=== PATIENT | female | born 1960 | race Caucasian/White ===

== ENCOUNTER → 2016-12-24 | Outpatient (CLI) | payer OTHER ==
--- NOTE | 2016-12-25 13:19 | MM ---
Reason for exam: screening (asymptomatic). Last mammogram was performed 2 years and 3 months ago. History: Patient is postmenopausal. Physical Findings: A clinical breast exam by your physician is recommended on an annual basis and results should be correlated with mammographic findings. MG Screening Mammo w CAD Bilateral CC and MLO view(s) were taken. Prior study comparison: October 05, 2014, bilateral MG screening mammo w CAD. The breast tissue is heterogeneously dense. This may lower the sensitivity of mammography. Finding: There are typically benign round calcifications in both breasts. New nodularity anterior inner left quadrant of the right breast 1-2cm from nipple. ASSESSMENT: Incomplete: need additional imaging evaluation, BI-RAD 0 RECOMMENDATION: Special view mammogram and ultrasound of the right breast. [facility] will attempt to contact patient to return for supplemental views and ultrasound.
== END | disposition home or self-care (01) ==
LOC: RADMAMWWP 10:53
PROVIDERS: ATTEND Family Medicine
DX: Z12.31 Encounter for screening mammogram for malignant neoplasm of breast (principal); Z80.3 Family history of malignant neoplasm of breast

== ENCOUNTER → 2017-01-08 | Outpatient (CLI) | payer OTHER ==
--- NOTE | 2017-01-09 10:54 | MM ---
Reason for exam: additional evaluation requested from abnormal screening. Last mammogram was performed less than 1 month ago. History: Patient is postmenopausal. Family history of breast cancer in maternal grandmother at age 60. Physical Findings: Nurse did not find any significant physical abnormalities on exam. MG Work Up Mamm w CAD RT CC and MLO view(s) were taken of the right breast. Prior study comparison: December 24, 2016, bilateral MG screening mammo w CAD. October 05, 2014, bilateral MG screening mammo w CAD. There is no discrete abnormality including area of concern. These results were verbally communicated with the patient and result sheet given to the patient on 01/08/17. ASSESSMENT: Incomplete: need additional imaging evaluation, BI-RAD 0 RECOMMENDATION: Ultrasound of the right breast.
--- NOTE | 2017-01-09 10:56 | USB ---
Reason for exam: additional evaluation requested from abnormal screening. History: Patient is postmenopausal. Family history of breast cancer in maternal grandmother at age 60. US Breast Workup Limited RT Right breast ultrasound demonstrates a 5 x 3 x 6mm hypoechoic duct cluster at 5 o'clock and a debris filled duct at the posterior nipple. These results were verbally communicated with the patient and result sheet given to the patient on 01/08/17. ASSESSMENT: Probably benign, BI-RAD 3 RECOMMENDATION: Follow-up diagnostic mammogram and ultrasound of the right breast in 6 months.
== END | disposition home or self-care (01) ==
LOC: RADMAMWWP 14:16
PROVIDERS: ATTEND Family Medicine
DX: R92.8 Other abnormal and inconclusive findings on diagnostic imaging of breast (principal)
CPT/HCPCS: 76642; G0206

== ENCOUNTER → 2017-06-30 | Outpatient (CLI) | payer OTHER ==
--- NOTE | 2017-06-30 14:47 | MM ---
Reason for exam: follow-up at short interval from prior study. Last mammogram was performed 6 months ago. History: Patient is postmenopausal. Family history of breast cancer in maternal grandmother at age 60. Physical Findings: Nurse did not find any significant physical abnormalities on exam. MG 3D Diag Mammo W/Cad RT CC and MLO view(s) were taken of the right breast. Prior study comparison: January 08, 2017, right breast MG work up mamm w CAD RT. December 24, 2016, bilateral MG screening mammo w CAD. The breast tissue is heterogeneously dense. This may lower the sensitivity of mammography. There is chronic nodularity in the right breast. There is no discrete abnormality. These results were verbally communicated with the patient and result sheet given to the patient on 06/30/17. ASSESSMENT: Benign, BI-RAD 2 RECOMMENDATION: Return to routine screening mammogram schedule for both breasts. Back on schedule for December 2017.
--- NOTE | 2017-06-30 14:49 | USB ---
Reason for exam: follow-up at short interval from prior study. History: Patient is postmenopausal. Family history of breast cancer in maternal grandmother at age 60. US Breast RT Right breast ultrasound includes all four quadrants, the retroareolar region and axilla. Finding demonstrates a 0.4 x 0.3 x 0.2cm oval lesion too small to characterize at 4 o'clock, a 1.0 x 1.1 x 0.4cm oval, cluster of small cysts at 6 o'clock and debris filled duct at the posterior nipple. Stable from 9-13-17. These results were verbally communicated with the patient and result sheet given to the patient on 06/30/17. ASSESSMENT: Benign, BI-RAD 2 RECOMMENDATION: Return to routine screening mammogram schedule for both breasts. Back on schedule for December 2017.
== END | disposition home or self-care (01) ==
LOC: RADMAMWWP 13:22
PROVIDERS: ATTEND Family Medicine
DX: R92.8 Other abnormal and inconclusive findings on diagnostic imaging of breast (principal)
CPT/HCPCS: 77065; 76641; G0279

== ENCOUNTER 2018-02-20 09:45 | Day surgery (SDC) | payer OTHER ==
[2018-02-18 10:03] VITALS: BMI 37.8
[~2018-02-20 09:45] MED LIST: LACTATED RINGERS 1,000 ML IV SCH; LIDOCAINE 1% 20 ML VIAL (10MG/ML) FOR IV START INTRADERMA PRN
[2018-02-20 10:05] VITALS: TEMP 98.6
[2018-02-20] MEDS ORDERED: LIDOCAINE 1% INJ 10MG/ML (20 ML MDV) ONE (10:37)
[2018-02-20] MEDS ORDERED: GLYCOPYRROLATE 0.2 MG/ML 2 ML VIAL ONE (10:37)
[2018-02-20] MEDS ORDERED: PROPOFOL 10 MG/ML 20 ML VIAL IV ONE (10:37)
--- NOTE | 2018-02-20 10:48 | P.GSHP ---
History of Present Illness H&P Date: 02/20/18 Chief Complaint: Screening 57-year-old female presents today for colonoscopy. Last colonoscopy 5-6 years ago. She has a history of colon polyps. No family history of colon cancer. Past Medical History Past Medical History: Hyperlipidemia, Hypertension History of Any Multi-Drug Resistant Organisms: None Reported Past Surgical History: Section, Uterine Ablation Additional Past Surgical History / Comment(s): COLONOSCOPY Past Anesthesia/Blood Transfusion Reactions: No Reported Reaction Smoking Status: Never smoker - Past Family History Father Family Medical History: Cancer Medications and Allergies Home Medications Medication Instructions Recorded Confirmed Type FLUoxetine HCL 20 mg PO DAILY 02/18/18 02/20/18 History Hydrochlorothiazide 25 mg PO DAILY 02/18/18 02/20/18 History Metoprolol Succinate (ER) [Toprol 100 mg PO DAILY 02/18/18 02/20/18 History Xl] Simvastatin [Zocor] 20 mg PO HS 02/18/18 02/20/18 History Allergies Allergy/AdvReac Type Severity Reaction Status Date / Time Penicillins Allergy Rash/Hives Verified 02/20/18 09:59 Surgical - Exam Vital Signs Temp Pulse Resp BP Pulse Ox 98.6 F 55 L 16 162/70 96 02/20/18 10:03 02/20/18 10:03 02/20/18 10:03 02/20/18 10:03 02/20/18 10:03 Physical exam: General: Well-developed, well-nourished HEENT: Normocephalic, sclerae nonicteric Abdomen: Nontender, nondistended Extremities: No edema Neuro: Alert and oriented Assessment and Plan (1) Colon cancer screening Narrative/Plan: Will proceed with colonoscopy at this time Current Visit: Yes Status: Acute Code(s): Z12.11 - ENCOUNTER FOR SCREENING FOR MALIGNANT NEOPLASM OF COLON SNOMED Code(s): 792732653
--- NOTE | 2018-02-20 11:01 | P.PCN ---
Date of Procedure: 02/20/18 Procedure(s) Performed: PREOPERATIVE DIAGNOSIS: Colon cancer screening with history of polyps POSTOPERATIVE DIAGNOSIS: Diverticulosis PROCEDURE: Colonoscopy ANESTHESIA: MAC SURGEON: Jamar Conn M.D. SPECIMENS: None ENDOSCOPIC PROCEDURE: The patient was placed on the endoscopy table in the left decubitus position. The Olympus colonoscope was inserted into the anus and passed under direct visualization to the base of the cecum. The appendiceal orifice was visualized. From that point the scope was slowly withdrawn inspecting all surfaces carefully. There were no neoplastic inflammatory or polypoid lesions throughout the cecum, ascending, transverse, descending, sigmoid and rectum. There was mild left-sided diverticulosis noted. Digital rectal examination was normal. The patient was taken to the recovery room in stable condition per anesthesia guidelines. RECOMMENDATIONS: Increase fiber. Follow-up colonoscopy 5 years.
[2018-02-20 11:21] VITALS: BP 109/69; PULSE 49; RESP 16
== END 2018-02-20 11:36 | disposition home or self-care (01) ==
LOC: ORWHC2ENDO 09:45
PROVIDERS: ATTEND Surgery
DX: Z12.11 Encounter for screening for malignant neoplasm of colon (principal); K57.30 Diverticulosis of large intestine without perforation or abscess without bleeding; Z86.010 Personal history of colon polyps; E78.5 Hyperlipidemia, unspecified; I10 Essential (primary) hypertension; F39 Unspecified mood [affective] disorder; Z79.899 Other long term (current) drug therapy; Z88.0 Allergy status to penicillin
CPT/HCPCS: J2001; J2704; G0105

== ENCOUNTER → 2018-02-25 | Outpatient (CLI) | payer OTHER ==
--- NOTE | 2018-02-26 12:06 | MM ---
Reason for exam: screening (asymptomatic). Last mammogram was performed 8 months ago. History: Patient is postmenopausal. Family history of breast cancer in maternal grandmother at age 60. MG 3D Screening Mammo W/Cad Bilateral CC and MLO view(s) were taken. Prior study comparison: June 30, 2017, right breast MG 3d diag mammo w/cad RT. January 08, 2017, right breast MG work up mamm w CAD RT. There are scattered fibroglandular densities. No significant changes when compared with prior studies. ASSESSMENT: Benign, BI-RAD 2 RECOMMENDATION: Routine screening mammogram of both breasts in 1 year.
== END | disposition home or self-care (01) ==
LOC: RADMAMWWP 11:05
PROVIDERS: ATTEND Family Medicine
DX: Z12.31 Encounter for screening mammogram for malignant neoplasm of breast (principal)
CPT/HCPCS: 77063; 77067

== ENCOUNTER → 2019-04-06 | Outpatient (CLI) | payer OTHER ==
--- NOTE | 2019-04-08 09:58 | MM ---
Reason for exam: screening (asymptomatic). Last mammogram was performed 1 year and 1 month ago. History: Patient is postmenopausal. Family history of breast cancer in maternal grandmother at age 60. Physical Findings: A clinical breast exam by your physician is recommended on an annual basis and results should be correlated with mammographic findings. MG 3D Screening Mammo W/Cad Bilateral CC and MLO view(s) were taken. Prior study comparison: February 25, 2018, bilateral MG 3d screening mammo w/cad. June 30, 2017, right breast MG 3d diag mammo w/cad RT. The breast tissue is heterogeneously dense. This may lower the sensitivity of mammography. Benign appearing bilateral calcifications. No suspicious abnormality. No significant changes when compared with prior studies. ASSESSMENT: Benign, BI-RAD 2 RECOMMENDATION: Routine screening mammogram of both breasts in 1 year.
== END | disposition home or self-care (01) ==
LOC: RADMAMWWP 02-23 15:31
PROVIDERS: ATTEND Family Medicine
DX: Z12.31 Encounter for screening mammogram for malignant neoplasm of breast (principal)
CPT/HCPCS: 77063; 77067

== ENCOUNTER → 2020-08-23 | Outpatient (CLI) | payer OTHER ==
--- NOTE | 2020-08-24 13:36 | MM ---
Reason for exam: screening (asymptomatic). Last mammogram was performed 1 year and 5 months ago. History: Patient is postmenopausal. Family history of breast cancer in maternal grandmother at age 60. Physical Findings: A clinical breast exam by your physician is recommended on an annual basis and results should be correlated with mammographic findings. MG 3D Screening Mammo W/Cad Bilateral CC and MLO view(s) were taken. Prior study comparison: April 06, 2019, bilateral MG 3d screening mammo w/cad. February 25, 2018, bilateral MG 3d screening mammo w/cad. The breast tissue is heterogeneously dense. This may lower the sensitivity of mammography. Finding: There are grouped/clustered calcifications in the central aspect of the left breast. There are few benign appearing round calcifications bilaterally. New finding and increase in number of calcifications since April 06, 2019. ASSESSMENT: Incomplete: need additional imaging evaluation, BI-RAD 0 RECOMMENDATION: Special view mammogram of the left breast. [facility] will attempt to contact patient to return for supplemental views.
== END | disposition home or self-care (01) ==
LOC: RADMAMWWP 11:03
PROVIDERS: ATTEND Internal Medicine
DX: Z12.31 Encounter for screening mammogram for malignant neoplasm of breast (principal)
CPT/HCPCS: 77063; 77067

== ENCOUNTER → 2020-08-25 | Outpatient (CLI) | payer OTHER ==
--- NOTE | 2020-08-25 12:13 | MM ---
Reason for exam: additional evaluation requested from abnormal screening. Last mammogram was performed less than 1 month ago. History: Patient is postmenopausal. Family history of breast cancer in maternal grandmother at age 60. Physical Findings: Nurse did not find any significant physical abnormalities on exam. MG 3D Work Up W/Cad LT CC with magnification, ML with magnification, and ML view(s) were taken of the left breast. Prior study comparison: August 23, 2020, bilateral MG 3d screening mammo w/cad. April 06, 2019, bilateral MG 3d screening mammo w/cad. The breast tissue is heterogeneously dense. This may lower the sensitivity of mammography. There is a group of indeterminate microcalcifications central outer left breast zone B. These results were verbally communicated with the patient and result sheet given to the patient on 08/25/20. ASSESSMENT: Suspicious, BI-RAD 4 RECOMMENDATION: Stereotactic core biopsy of the left breast. Called Dr. Brink's office with mammographic findings and has scheduled an appointment for the patient for 09/27/20 at 9:[address] Epps. Biopsy scheduled for 09/18/20 at 10:00. PRELIMINARY REPORT CALLED AND FAXED TO DR. EPPS ON 08/25/20.
== END | disposition home or self-care (01) ==
LOC: RADMAMWWP 09:10
PROVIDERS: ATTEND Internal Medicine
DX: R92.0 Mammographic microcalcification found on diagnostic imaging of breast (principal); Z78.0 Asymptomatic menopausal state; Z80.3 Family history of malignant neoplasm of breast
CPT/HCPCS: 77065; G0279; 77061

== ENCOUNTER → 2020-09-18 | Day surgery (SDC) | payer OTHER ==
[2020-09-18 09:26] VITALS: RESP 16; TEMP 98.4
[2020-09-18 11:34] VITALS: BP 128/77; PULSE 56
--- NOTE | 2020-09-18 16:13 | MM ---
STEREOTACTIC GUIDED VACUUM-ASSISTED BREAST BIOPSY RADIOLOGIST: Misael Pantoja M.D. ANESTHESIA: 1% buffered lidocaine as local anesthetic DEVICE: Mammotome 8 gauge BIOPSY MARKER CLIP: Yes SPECIMEN RADIOGRAPH: Yes COMPLICATIONS: None DISCUSSION: The procedure and risks were explained to the patient and written informed consent obtained. Using local anesthetic, sterile technique and stereotactic guidance, the vacuum assisted core biopsy device was advanced and positioned in the region of microcalcifications LEFT breast. The stereotactic biopsy device was advanced according to the stereotactic coordinates and positioned in the region of the calcifications. Multiple core samples were obtained. Breast specimen radiograph confirmed presence of calcifications. A biopsy marker clip was deployed. Hemostasis was achieved with direct compression over the breast. A compression dressing was applied and the patient's breast was wrapped with an 8 inch Mateo wrap. Post procedure 2 view mammogram was obtained verifying satisfactory position of the biopsy marker clip in the breast. There were no complications. The patient tolerated procedure well. Post procedural instructions were given to the patient and the patient was discharged in satisfactory condition. A follow-up letter will be forthcoming after receiving pathology results. IMPRESSION: Technically successful stereotactic guided vacuum assisted core biopsy left breast with breast specimen radiograph obtained, biopsy marker clip placement and 2 view mammogram performed. Pathology Results: High Risk LEFT BREAST, STEREOTACTIC CORE BIOPSY: Atypical ductal hyperplasia (ADH), intraductal papilloma with atypia and background fibrocystic changes including calcifications. See note. Recommendation Surgical consult of the left breast. KARLA
== END ==
LOC: RADMAMWWP 08:54
PROVIDERS: ATTEND Student in an Organized Health Care Education/Training Program
DX: N62 Hypertrophy of breast (principal); D24.2 Benign neoplasm of left breast; R92.1 Mammographic calcification found on diagnostic imaging of breast; Z88.0 Allergy status to penicillin
CPT/HCPCS: 88305; 19081; A4648; J2001

== ENCOUNTER → 2020-10-26 | Outpatient (CLI) | payer OTHER | END | disposition home or self-care (01) | LOC: LABPAT 09:25 | PROVIDERS: ATTEND Student in an Organized Health Care Education/Training Program | DX: Z20.822 Contact with and (suspected) exposure to COVID-19 (principal) | CPT/HCPCS: U0003; C9803 ==

== ENCOUNTER 2020-11-02 11:19 | Day surgery (SDC) | payer OTHER ==
[2020-10-27 14:59] VITALS: BMI 34.7
[~2020-11-02 11:19] MED LIST changes: +DEXAMETHASONE SOD PHOSPHATE 4 MG/ML 1 ML VIAL IV ONE; +HEPARIN SODIUM,PORCINE/PF 5,000 UNIT/0.5 ML SYRINGE SQ PRN; +HYDROmorphone 0.5 MG/0.5 ML SYRINGE IVP PRN; +LIDOCAINE 1% (10MG/ML) FOR IV START INTRADERMA PRN; -LIDOCAINE 1% 20 ML VIAL (10MG/ML) FOR IV START INTRADERMA PRN; +MIDAZOLAM 2 MG/2 ML VIAL IV PRN; +ONDANSETRON 4 MG/2 ML VIAL IVP ONE; +Pre Op ABX Message 1 EACH MISC MISCELLANE ONE
[2020-11-02] MEDS ORDERED: ALPRAZolam 0.5 MG TAB ONE (12:01)
[2020-11-02] MEDS ORDERED: LIDOCAINE 1% INJ 10MG/ML (20 ML MDV) SQ ONE (12:51)
[2020-11-02] MEDS ORDERED: SUCCINYLCHOLINE CHLORIDE 100 MG/5 ML SYR IV ONE (13:36)
[2020-11-02] MEDS ORDERED: SODIUM CHLORIDE 0.9% 100 ML BAG ONE (13:36)
[2020-11-02] MEDS ORDERED: PROPOFOL 10 MG/ML 20 ML VIAL IV ONE (13:36)
[2020-11-02] MEDS ORDERED: LIDOCAINE 1% INJ 10MG/ML (20 ML MDV) ONE (13:36)
[2020-11-02] MEDS ORDERED: CLINDAMYCIN 150 MG/ML 4 ML VIAL ONE (13:36)
[2020-11-02] MEDS ORDERED: fentaNYL (PF) 50 MCG/ML 2 ML AMP ONE (13:36)
[2020-11-02] MEDS ORDERED: MIDAZOLAM 2 MG/2 ML VIAL ONE (13:36)
[2020-11-02] MEDS ORDERED: BUPIVACAINE (PF) 0.25% 30 ML VIAL SQ ONE ×2 (13:58)
--- NOTE | 2020-11-02 14:46 | P.OP ---
Date of Procedure: 11/02/20 Preoperative Diagnosis: Left breast lesion Postoperative Diagnosis: Same Procedure(s) Performed: Needle localized lumpectomy of left breast Anesthesia: BHUPENDRA Surgeon: Danyel Nunez Estimated Blood Loss (ml): 5 Condition: stable Disposition: PACU Description of Procedure: Patient was brought into the operative suite remained in the supine position underwent general endotracheal anesthesia per Department of anesthesia previously she had the needle localized in the left breast. The patient was prepped and draped in usual sterile fashion timeout was performed correct patient correct procedure correct site was verified. A 4 cm incision was made directly over the wire and carried down around the tip of the wire being sure to include the wire and clip in the specimen. The specimen was marked with a short superior long lateral stitch and sent to mammography. Mammography confirmed that the wire and clip were both within the specimen. There was an area on the superior margin that felt like abnormal tissue it was thickened with some hypertrophy an extended margin was taken and marked with a stitch on the inferior portion. Hemostasis was achieved the wound was irrigated and closed in layers of 3-0 Vicryl followed by 4-0 running subcuticular Monocryl. Sterile dressing was applied patient tolerated the procedure well no apparent complication Plan - Discharge Summary Discharge Rx Participant: No New Discharge Prescriptions: No Action Simvastatin [Zocor] 20 mg PO HS FLUoxetine HCL [Sarafem] 20 mg PO DAILY Lisinopril [Prinivil] 10 mg PO DAILY Aspirin [Adult Low Dose Aspirin EC] 81 mg PO DAILY Discharge Medication List FLUoxetine HCL [Sarafem] 20 mg PO DAILY 02/18/18 [History] Simvastatin [Zocor] 20 mg PO HS 02/18/18 [History] Aspirin [Adult Low Dose Aspirin EC] 81 mg PO DAILY 09/07/20 [History] Lisinopril [Prinivil] 10 mg PO DAILY 09/07/20 [History]
[2020-11-02 15:19] VITALS: TEMP 97.1
[2020-11-02 15:23] VITALS: RESP 16
[2020-11-02 15:55] VITALS: BP 133/76; PULSE 64
--- NOTE | 2020-11-03 10:19 | MM ---
FINDINGS: <Single> breast specimen radiograph demonstrates the biopsy marker clip to be present eccentrically within the specimen <immediately adjacent> to the localization needle. IMPRESSION: Localization needle and biopsy marker clip present within the specimen radiograph with the needle appearing intact. Pathology Results: Benign A. LEFT BREAST, LUMPECTOMY: Benign intraductal papillomas with focal sclerosis and calcification (see note). Proliferative fibrocystic change with apocrine metaplasia, columnar cell change and sclerosing adenosis with focal calcification. Biopsy site change with inflammation and focal usual ductal hyperplasia present. All margins benign and negative for papilloma. Negative for diagnostic in situ or invasive carcinoma. Negative for residual atypia. B. EXTENDED SUPERIOR MARGIN, EXCISION: Benign intraductal papillomas with sclerosis and focal calcification. Proliferative fibrocystic change with sclerosing adenosis, focal radial scar, columnar cell change and usual ductal hyperplasia. Benign superior margin, negative for papilloma. Negative for diagnostic in situ or invasive carcinoma. Negative for residual atypia (see note) . Recommendation Follow up mammogram of the left breast in 6 months. KARLA
--- NOTE | 2020-11-03 10:23 | MM ---
EXAMINATION TYPE: MG pre op needle loc LT DATE OF EXAM: 11/02/2020 COMPARISON: 08/25/2020 and 09/18/2020 CLINICAL HISTORY: Atypical ductal hyperplasia and intraductal papilloma for surgical resection TECHNIQUE: Needle localization with wire placement and surgical excision of area of concern in the left breast. FINDINGS: The procedure of needle localization with wire placement and than surgical excision was explained to the patient. Benefits, alternatives, and risks were discussed. An informed consent was then obtained. The shortest pathway for procedure was chosen. Shortest pathway was CC approach. The overlying skin was prepped and draped in usual sterile fashion. Lidocaine buffered with bicarbonate was used as anesthetic into the skin and subcutaneous tissue up to the level of area of concern. A 5 cm needle was used. It was placed via a superior to inferior approach under mammographic guidance. Subsequent 90 degrees mammogram show the needle to be in satisfactory position relative to the targeted area. At this point, wire was placed and the needle was withdrawn. The wire was fixed to patient's skin. Images were marked for surgeon. The patient tolerated the procedure well without any immediate complication. The patient was kept in the radiology department for short stay after the procedure and then taken to surgery for surgical excision. Targeted calcifications and wire are identified in specimen mammogram. IMPRESSION: Successful, uncomplicated needle localization with wire placement and surgical excision of biopsy marker clip in the left breast. Full pathology results to follow. Pathology Results: Benign A. LEFT BREAST, LUMPECTOMY: Benign intraductal papillomas with focal sclerosis and calcification (see note). Proliferative fibrocystic change with apocrine metaplasia, columnar cell change and sclerosing adenosis with focal calcification. Biopsy site change with inflammation and focal usual ductal hyperplasia present. All margins benign and negative for papilloma. Negative for diagnostic in situ or invasive carcinoma. Negative for residual atypia. B. EXTENDED SUPERIOR MARGIN, EXCISION: Benign intraductal papillomas with sclerosis and focal calcification. Proliferative fibrocystic change with sclerosing adenosis, focal radial scar, columnar cell change and usual ductal hyperplasia. Benign superior margin, negative for papilloma. Negative for diagnostic in situ or invasive carcinoma. Negative for residual atypia (see note) . Recommendation Follow up mammogram of the left breast in 6 months. KEVYND
== END 2020-11-02 16:08 | disposition home or self-care (01) ==
LOC: OR 11:19
PROVIDERS: ATTEND Student in an Organized Health Care Education/Training Program
DX: N64.9 Disorder of breast, unspecified (principal); I10 Essential (primary) hypertension; E78.5 Hyperlipidemia, unspecified; F41.9 Anxiety disorder, unspecified; Z79.82 Long term (current) use of aspirin
CPT/HCPCS: 19281; 19301; 88342; 88307; 88341; 76098; J2250; J1100; J2405; J2001; J3010; J0330; J2704; J1644

== ENCOUNTER → 2021-05-28 | Outpatient (CLI) | payer OTHER ==
--- NOTE | 2021-05-29 07:50 | MM ---
Reason for exam: follow-up at short interval from prior study. Last mammogram was performed 9 months ago. History: Patient is postmenopausal and has history of high-risk lesion on a previous biopsy at age 60. Family history of breast cancer in maternal grandmother at age 60. Benign MG pre op needle loc LT of the left breast, November 02, 2020. Lumpectomy of the left breast, November 02, 2020. High risk MG stereo VAD BX LT of the left breast, September 18, 2020. Physical Findings: Nurse did not find any significant physical abnormalities on exam. MG 3D Diag Mammo W/Cad LT CC and MLO view(s) were taken of the left breast. Prior study comparison: August 25, 2020, left breast MG 3d work up w/cad LT. August 23, 2020, bilateral MG 3d screening mammo w/cad. The breast tissue is heterogeneously dense. This may lower the sensitivity of mammography. There is chronic nodularity in the left breast. Post excisional changes with some surgical distortion. 6 month follow up recomended. These results were verbally communicated with the patient and result sheet given to the patient on 05/28/21. ASSESSMENT: Probably benign, BI-RAD 3 RECOMMENDATION: Follow-up diagnostic mammogram of both breasts in 6 months.
== END | disposition home or self-care (01) ==
LOC: RADMAMWWP 15:00
PROVIDERS: ATTEND Internal Medicine
DX: R92.2 Inconclusive mammogram (principal); R92.8 Other abnormal and inconclusive findings on diagnostic imaging of breast; Z78.0 Asymptomatic menopausal state; Z80.3 Family history of malignant neoplasm of breast
CPT/HCPCS: 77065; G0279; 77061

== ENCOUNTER → 2022-03-12 | Outpatient (CLI) | payer OTHER ==
--- NOTE | 2022-03-12 14:36 | MM ---
Reason for Exam: Follow-up at short interval from prior study. Last mammogram was performed 1 year(s) and 7 month(s) ago. Patient History: Menarche at age 11. First Full-Term at age 26. Postmenopausal. 11/02/2020, Lumpectomy on the Left side. 11/02/2020, Benign Core Biopsy on the left side. 09/18/2020, High risk Core Biopsy on the left side. Maternal grandmother had breast cancer, age 60. Risk Values: Nae 5 year model risk: 2.6%. NCI Lifetime model risk: 10.9%. Tissue Density: The breast tissue is heterogeneously dense. This may lower the sensitivity of mammography. Findings: Analyzed By CAD. Benign-appearing round calcifications within both breasts. Chronic nodularity within left breast. No new worrisome cluster microcalcifications in either breast. Postsurgical changes in the left breast from lumpectomy. Overall Assessment: Benign, BI-RAD 2 Management: Screening Mammogram of both breasts in 1 year. A clinical breast exam by your physician is recommended on an annual basis and results should be correlated with mammographic findings. This exam should not preclude additional follow-up of suspicious palpable abnormalities. Results were given to the patient verbally at the time of exam. Electronically signed and approved by: Shane Mcnamara D.O.
--- NOTE | 2022-03-12 15:15 | BD ---
EXAMINATION TYPE: Axial Bone Density DATE OF EXAM: 03/12/2022 COMPARISON: FIRST DEXA AT [facility] CLINICAL HISTORY: 61 years year old Female. ICD-10 CODE: M81.0 AGERELATED OSTEOPOR Height: 62IN Weight: 207LB FRAX RISK QUESTIONS: Family History (Parent hip fracture): YES Secondary Osteoporosis: RISK FACTORS HISTORY OF: Active: YES Postmenopausal woman: YES MEDICATIONS: Additional Medications: BP MED, CHOLESTEROL MED, METFORMIN, ANXIETY MED Additional History: EXAM MEASUREMENTS: Bone mineral densitometry was performed using the [employer] System. Bone mineral density as measured about the Lumbar spine is: ----- L1-L4(G/cm2): 1.292 T Score Values are as follows: ----- L1: 0.8 ----- L2: 0.6 ----- L3: 0.5 ----- L4: 1.7 ----- L1-L4: 0.9 FIRST DEXA AT [facility] Bone mineral density about the R hip (g/cm2): 1.091 Bone mineral density about the L hip (g/cm2): 1.095 T Score values are as follows: -----R Neck: -0.1 -----L Neck: -0.4 -----R Total: 0.7 -----L Total: 0.7 FRAX%s: The graph provided illustrates a 12.9% chance for a major osteoporotic fx and a 0.3% chance f or the hips probability for fx in 10 years time. IMPRESSION: Normal (Values between +1 and -1 indicate normal bone mass). Consider repeating this study in 5 year s or sooner if there is some new clinical indication. NOTE: T-SCORE=SD OF THE YOUNG ADULT MEAN.
== END | disposition home or self-care (01) ==
LOC: RADMAMWWP 14:09
PROVIDERS: ATTEND Internal Medicine Geriatric Medicine
DX: R92.2 Inconclusive mammogram (principal); Z78.0 Asymptomatic menopausal state; Z80.3 Family history of malignant neoplasm of breast
CPT/HCPCS: 77080; 77066; G0279; 77062

== ENCOUNTER 2023-04-04 09:19 | Day surgery (SDC) | payer OTHER ==
[2023-04-02 13:04] VITALS: BMI 39.9
[2023-04-04] MEDS ORDERED: LACTATED RINGERS 1,000 ML IV SCH (09:37)
[2023-04-04] MEDS ORDERED: LIDOCAINE 1% (10MG/ML) FOR IV START INTRADERMA ONE (09:55)
[2023-04-04 10:05] LABS: Glucose,Whole Blood 131 mg/dL (70-110)
[2023-04-04 10:11] VITALS: RESP 16; TEMP 97.6
[2023-04-04] MEDS ORDERED: PROPOFOL 10 MG/ML 20 ML VIAL IV ONE (10:24)
--- NOTE | 2023-04-04 10:39 | P.PCN ---
Date of Procedure: 04/04/23 Procedure(s) Performed: BRIEF HISTORY: Patient is a 62-year-old pleasant white female scheduled for an elective colonoscopy as a part of evaluation of recent episode of acute abdominal pain followed by rectal bleeding of 1 day duration That happened about a week ago. Her symptoms have resolved. She has no further bleeding or abdominal pain. PROCEDURE PERFORMED: Colonoscopy with biopsy . PREOPERATIVE DIAGNOSIS: Recent episode of abdominal pain/rectal bleeding of 1 day duration. IV sedation per Anesthesia. PROCEDURE: After informed consent was obtained, the patient, was brought into the endoscopy unit. IV sedation was administered by Anesthesia under continuous monitoring. Digital rectal examination was normal. Initially the Olympus CF-160 flexible video colonoscope was then inserted in the rectum, gradually advanced into the cecum without any difficulty. Careful examination was performed as the scope was gradually being withdrawn. Ileocecal valve and the appendiceal orifice were visualized and appeared normal. Prep was excellent. Mucosa of the cecum, ascending colon, transverse colon, a normal. There was segmental colitis involving the proximal sigmoid colon and distal descending colon extending from 30-50 cm from the anal verge with mucosal erythema friability consistent with acute ischemic colitis. Status post multiple biopsies. Scattered sigmoid diverticulosis. Rest of the sigmoid colon, and rectum appeared normal. Retroflexion was performed in the rectum and no lesions were seen. The patient tolerated the procedure well. IMPRESSION: Segmental colitis involving the proximal sigmoid colon and distal descending colon with mucosal erythema and friability extending from 30-50 cm from the anal verge consistent with acute ischemic colitis which appears to be resolving Scattered similar diverticulosis No evidence of colorectal neoplasia RECOMMENDATIONS: Findings of this examination were discussed with the patient as well as a family. She was advised to follow with the biopsy results. Recommend repeat screening colonoscopy in 10 years.
[2023-04-04 11:01] VITALS: BP 158/90; PULSE 59
== END 2023-04-04 11:21 | disposition home or self-care (01) ==
LOC: ORWHC2ENDO 09:19
PROVIDERS: ATTEND Internal Medicine Gastroenterology
DX: K57.30 Diverticulosis of large intestine without perforation or abscess without bleeding (principal); K62.5 Hemorrhage of anus and rectum; K50.10 Crohn's disease of large intestine without complications; K55.039 Acute (reversible) ischemia of large intestine, extent unspecified; I10 Essential (primary) hypertension; E78.5 Hyperlipidemia, unspecified; E11.9 Type 2 diabetes mellitus without complications; K21.9 Gastro-esophageal reflux disease without esophagitis; Z79.4 Long term (current) use of insulin; Z79.82 Long term (current) use of aspirin; Z79.899 Other long term (current) drug therapy; Z88.0 Allergy status to penicillin
CPT/HCPCS: 88305; 45380; J2704; 88313

== ENCOUNTER → 2023-12-30 | Outpatient (CLI) | payer MEDICARE ==
--- NOTE | 2024-01-04 12:20 | MM ---
Reason for Exam: Screening (asymptomatic). Last mammogram was performed 1 year(s) and 10 month(s) ago. Patient History: Menarche at age 11. First Full-Term at age 26. Postmenopausal. 11/02/2020, Lumpectomy on the Left side. 11/02/2020, Benign Core Biopsy on the left side. 09/18/2020, High risk Core Biopsy on the left side. Maternal grandmother had breast cancer, age 60. Risk Values: Nae 5 year model risk: 2.8%. NCI Lifetime model risk: 10.3%. Prior Study Comparison: 08/25/2020 Left Diagnostic Mammogram, [facility]. 05/28/2021 Left Diagnostic Mammogram, [facility]. 03/12/2022 Bilateral MG 3D diag mammo w/cad [facility], [facility]. Tissue Density: There are scattered areas of fibroglandular density. Findings: Analyzed By CAD. Right breast: There is no suspicious group of microcalcifications or new suspicious mass. Left breast: There is no suspicious group of microcalcifications or new suspicious mass. Overall Assessment: Negative, BI-RAD 1 Management: Screening Mammogram of both breasts in [address] [facility] will attempt to contact patient to return for supplemental views and ultrasound if indicated. Patient should continue monthly self-breast exams. A clinical breast exam by your physician is recommended on an annual basis. This exam should not preclude additional follow-up of suspicious palpable abnormalities. Note on Nae scores and lifetime risk: 1. A Nae score greater than 3% is considered moderate risk. If this is the case, consider specialist referral to assess eligibility for a risk reducing agent. 2. If overall lifetime risk for the development of breast cancer is 20% or higher, the patient may qualify for future screening with alternating mammogram and breast MRI. Electronically signed and approved by: Josue Laboy DO
== END | disposition home or self-care (01) ==
LOC: RADMAMWWP 07:55
PROVIDERS: ATTEND Internal Medicine Geriatric Medicine
DX: Z12.31 Encounter for screening mammogram for malignant neoplasm of breast
CPT/HCPCS: 77067